=== PATIENT | female | born 1980 | race American Indian/Alaskan Native ===

== ENCOUNTER 2017-05-20 13:13 | Emergency (ER) | payer BC ==
[2017-05-20 13:53] VITALS: BMI 42.4
[2017-05-20] MEDS ORDERED: Lactated Ringer's 1,000 ML IV SCH (14:15)
--- NOTE | 2017-05-20 14:17 | OBHP ---
Datetime: 05/20/2017 14:06 IP Adm Impression: , intrauterine IP Chief Complaint Other: Lightheadness, Pelvic Pressure IP Admit Plan: Observation/Evaluation Admit Comment, IP Provider: Subjective: CC: Lightheadness and pelvic pressure HPI: Pt is 36 year old at 34 weeks EGA who presents to labor and delivery for evaluation and tr eatment of lightheadness which began the morning of 05/20 without any specific provoking event. Pt sta gilberto the lightheadness is intermittent in nature and resolves without any acute intervention. Lighthea dness is not associated with any symptoms, denies exacerbating or remitting factors. Pelvic pressure began approximately 3 days ago with no specific provoking event that is interrmitent in nature, resol ves without any acute intervention. Pt denies contractions, vaginal bleeding, rupture of membranes. Admits movements. ROS - Admits to SOB on exertion. Denies fevers, chills, chest pain, abdominal pain, nausea, vomiti ng, constipation, diarrhea, urinary urgency, pain with urination. 12 point ROS negative except as indicated in HPI. Ob Hx: , FDLMP September 26, EGA 34 weeks, JONATHAN - end of June. 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 Past Medical History: Chronic HTN. Past Surgical History: none Allergies: NKDA Social: Denies alcohol, tobacco and illicit drugs use. 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 Medications: Labetalol 100mg BID since , , Vitamin D3, Folate. Primary Bar Pointer: Dr. Pruitt Objective: Consitutional: NAD Head: ATNC Eyes: EOMI bilaterally ENT: Moist mucous membranes Heart: +S1, +S2, RRR, no rubs, no gallops, no murmurs Lungs: CTA bilateral, no wheezing, no rhonchi, no rales Abdomen: Gravid Neuro: Awake, alert, oriented x 3, pt responds to verbal stimuli, answers questions appropiately, follows commands, moves extremities past midline. Extremities: Trace edema bilateral LE. Skin: clean, warm, dry and intact Psych: normal mood and normal affect Assessment and Plan : Pt is 36 year old at 34 weeks EGA who presents to labor and delivery for evaluation and tr eatment of lightheadness and pelvic pressure. Lightheadness without syncope - Likely secondary to dehydration; rule out Pre-Eclampsia - BP reviewed, trended, appreciated goal SBP 90- 150mmHg, goal DBP < 80-100mmHg, - Continue Labetolol 100mg PO, continue to monitor closely. - Labs - CBC, CMP, UA - IVF LR @ 125ml/hr Pt seen with, case reviewed with, planned approved by attending physician, Dr. Pruitt. agrees with above Pelvic Type - PN: Not Done Extremities - PN: Normal Abdomen - PN: Normal Back - PN: Normal Breast - PN: Not Done Lungs - PN: Normal Heart - PN: Normal Thyroid - PN: Normal Neurologic - PN: Not Done HEENT - PN: Normal General - PN: Normal IP Hx Assessment: The History has been Reviewed and is Current EGA AdmitDate IP: 34.0 Vital Signs Provider: Reviewed IP Chief Complaint: Other Genitourinary Exam: Not Done DTRs - PN: Not Done
[2017-05-20 14:43] LABS: BASO # 0.1 K/uL (0.0-0.2); BASO % 0.9 % (0.0-2.0); EOS # 0.1 K/uL (0.0-0.7); EOS % 0.5 % (0.0-4.0); HEMOGLOBIN 10.9 g/dL (11.0-16.0); LYMPH # 2.9 K/uL (1.0-4.3); LYMPH % 21.2 % (20.0-40.0); MEAN CELL VOLUME 86.6 fL (81.0-99.0); MEAN CORPUSCULAR HGB CONC 33.5 g/dL (33.0-37.0); MEAN PLATELET VOLUME 9.4 fL (7.2-11.7); MONO # 1.1 K/uL (0.0-0.8); MONO % 8.3 % (0.0-10.0); NEUT # 9.3 K/uL (1.8-7.0); NEUT % 69.1 % (50.0-75.0); NRBC % 0.1 % (0.0-2.0); RBC 3.75 Mil/uL (3.80-5.20); RED CELL DISTRIBUTION WIDTH 13.3 % (11.5-14.5); WHITE BLOOD COUNT 13.5 K/uL (4.8-10.8)
[2017-05-20 14:51] LABS: PROTHROMBIN TIME 10.6 SECONDS (9.7-12.2)
[2017-05-20 14:57] LABS: URINE BACTERIA RARE (<OCC); URINE BILIRUBIN NEGATIVE (NEGATIVE); URINE BLOOD 1+ (NEGATIVE); URINE CLARITY Clear (Clear); URINE COLOR Colorless (YELLOW); URINE GLUCOSE (UA) NORMAL (Normal); URINE LEUKOCYTE ESTERASE 1+ Leu/uL (Negative); URINE PROTEIN NEGATIVE (NEGATIVE); URINE UROBILINOGEN NORMAL mg/dL (0.2-1.0)
[2017-05-20 15:04] LABS: ALBUMIN 3.7 g/dL (3.5-5.0); ALT/SGPT 29 U/L (9-52); AST/SGOT 24 U/L (14-36); BLOOD UREA NITROGEN 8 mg/dL (7-17); GFR AFRICAN-AMERICAN > 60; GFR NON-AFRICAN AMERICAN > 60; URIC ACID 4.3 mg/dL (2.2-7.5)
[2017-05-20 15:06] LABS: SQUAMOUS EPITHIAL 3 /hpf (0-5)
--- NOTE | 2017-05-20 16:48 | US ---
PROCEDURE: Biophysical profile HISTORY: Lightheadedness, COMPARISON: None TECHNIQUE: Standard protocol for this study/examination. FINDINGS: FINDINGS: Biophysical profile score 8/8 Based on the followin. breathing movements: 2/2 2. Gross body movement: 2/2 3. tone: 2/2 4. Qualitative amniotic fluid index: 2/2 Breech presentation. Fundal Placenta. No evidence of abruption or previa Gestational age derived from LMP 34 weeks Gestational age derived from the following biometric parameters 34 weeks 2 days . Biparietal diameter 8.63 cm Head [id number] cm Abdominal circumference 28.58 cm Femur length 6.71 cm Estimated weight 2231 g Calculated cardiac rate 119.5 beats per min. Closed cervix measuring 3.97 cm IMPRESSION: Biophysical profile score 8/8. 34 weeks 2 days live intrauterine gestation. Gestational concordance documented. JONATHAN based on LMP: 06/04/2017 JONATHAN based on biometry: 06/29/2017
--- NOTE | 2017-05-20 17:06 | OBDCSUM ---
Datetime: 05/20/2017 17:04 Discharged to, Provider: Home Follow up at, Provider: 1week Follow up in weeks, Provider: pmd Discharge Comment, Provider: dc home preecmptic s/s giv cont ;abetolo f/u pmd in 1week Discharge Diagnosis Prov Other: 33we ligt hadness ch htn
--- NOTE | 2017-05-20 17:07 | OBHP ---
Datetime: 05/20/2017 17:02 Admit Comment, IP Provider: pt was seen at bed side, feels ok, no ctxs, vb, lof+fm nst 130 mod vaughn bp n bpp 8/8 plan dc home preecmptic s/s giv cont ;abetolo f/u pmd in 1week FHR - Baseline A Provider: 130 Contraction Comments Provider: none Vital Signs Provider: Reviewed; Within Normal Limits NICHD Variability Prov Fetus A: Moderate 6-25bpm NICHD Accel Fetus A IP Provider: 15X15 FHR Category Provider Fetus A: Category I Dilatation, Provider: 0 Effacement, Provider: 0 Station, Provider: 0 Datetime: 05/20/2017 14:06 EGA AdmitDate IP: 34.0
[2017-05-20 21:39] VITALS: BP 128/84; PULSE 92; O2SAT 99
== END 2017-05-20 17:30 | disposition home or self-care (01) ==
LOC: C.EROB 13:13
DX: O26.893 Other specified pregnancy related conditions, third trimester (principal); R42 Dizziness and giddiness; R10.2 Pelvic and perineal pain; Z3A.34 34 weeks gestation of pregnancy
CPT/HCPCS: 76815; 76818; 80053; 81001; 83615; 84550; 85025; 85384; 85610; 85730; 99283; J7120

== ENCOUNTER 2017-06-19 06:35 | Inpatient (IN) | payer BC ==
--- NOTE | 2017-06-19 07:10 | OBADHP ---
Datetime: 06/19/2017 07:05 Admit Comment, IP Provider: at 39.6weeks came withn c/o dec fm and ctxs on /off, no vb, no lof. obhx 1 x pmh ch htn med labetolol all nkda psh de soch de ve /-3 a/p at 39+weks chr htn/dec fm admit to l_d npo/ivf labs cytotec pen g cont celine and efm anticipate Pelvic Type - PN: Adequate Extremities - PN: Normal Abdomen - PN: Normal Back - PN: Normal Breast - PN: Normal Lungs - PN: Normal Heart - PN: Normal Thyroid - PN: Normal Neurologic - PN: Normal HEENT - PN: Normal General - PN: Normal FHR - Baseline A Provider: 130 Comments, ACOG Physical Exam: gravid,non tender IP Hx Assessment: The History has been Reviewed and is Current Vital Signs Provider: Reviewed; Within Normal Limits IP Chief Complaint: Uterine contractions; Decreased movement NICHD Variability Prov Fetus A: Moderate 6-25bpm NICHD Accel Fetus A IP Provider: 15X15 Dilatation, Provider: 1 Effacement, Provider: 60 Station, Provider: -2 Genitourinary Exam: Normal DTRs - PN: Normal EGA AdmitDate IP: 38.2 IP Adm Impression: Term, intrauterine ; No Active Labor IP Admit Plan: Admit to unit; Initiate labor induction protocol Datetime: 05/20/2017 17:02 Contraction Comments Provider: none FHR Category Provider Fetus A: Category I Datetime: 05/20/2017 14:06 IP Chief Complaint Other: Lightheadness, Pelvic Pressure
[2017-06-19 07:12] VITALS: BMI 41.6
[2017-06-19] MEDS ORDERED: Lactated Ringer's 1,000 ML IV SCH (07:15)
[2017-06-19] MEDS ORDERED: Penicillin G 5 Million Unit Vial IVPB ONE ×2 (07:45→07:50)
[2017-06-19 07:49] LABS: BASO % 0.3 % (0.0-2.0); EOS # 0.1 K/uL (0.0-0.7); EOS % 0.8 % (0.0-4.0); HEMOGLOBIN 10.2 g/dL (11.0-16.0); LYMPH # 1.7 K/uL (1.0-4.3); LYMPH % 16.1 % (20.0-40.0); MEAN CELL VOLUME 85.3 fL (81.0-99.0); MEAN CORPUSCULAR HEMOGLOBIN 29.2 pg (27.0-31.0); MEAN CORPUSCULAR HGB CONC 34.2 g/dL (33.0-37.0); MEAN PLATELET VOLUME 9.4 fL (7.2-11.7); MONO # 0.6 K/uL (0.0-0.8); MONO % 5.5 % (0.0-10.0); NEUT # 8.3 K/uL (1.8-7.0); NEUT % 77.3 % (50.0-75.0); RBC 3.49 Mil/uL (3.80-5.20); RED CELL DISTRIBUTION WIDTH 13.9 % (11.5-14.5); WHITE BLOOD COUNT 10.7 K/uL (4.8-10.8)
[2017-06-19 07:56] LABS: PROTHROMBIN TIME 10.8 SECONDS (9.7-12.2)
[2017-06-19 08:00] LABS: SQUAMOUS EPITHIAL 1 /hpf (0-5); URINE BILIRUBIN NEGATIVE (NEGATIVE); URINE BLOOD NEGATIVE (NEGATIVE); URINE CLARITY Clear (Clear); URINE COLOR Yellow (YELLOW); URINE GLUCOSE (UA) NORMAL (Normal); URINE LEUKOCYTE ESTERASE NEG Leu/uL (Negative); URINE PROTEIN NEGATIVE (NEGATIVE); URINE UROBILINOGEN NORMAL mg/dL (0.2-1.0)
[2017-06-19 08:06] LABS: ALBUMIN 3.3 g/dL (3.5-5.0); ALT/SGPT 14 U/L (9-52); AST/SGOT 29 U/L (14-36); BLOOD UREA NITROGEN 7 mg/dL (7-17); CALCIUM 8.8 mg/dl (8.6-10.4); GFR AFRICAN-AMERICAN > 60; GFR NON-AFRICAN AMERICAN > 60
[2017-06-19] MEDS ORDERED: Nalbuphine 20 mg/ml Inj (1 ml) IVP PRN (10:30)
--- NOTE | 2017-06-19 11:25 | OBPN ---
Datetime: 06/19/2017 11:23 IP Progress Impression: Normal progression of labor IP Procedures: Sterile Vag Exam Contraction Comments Provider: q1-4 FHR - Baseline A Provider: 130 IP Progress Note Comment: pt was examine at bd side ve /-2 cyototec 25 mcg placed anticipate NICHD Accel Fetus A IP Provider: 15X15 FHR Category Provider Fetus A: Category I NICHD Variability Prov Fetus A: Moderate 6-25bpm Dilatation, Provider: 3 Effacement, Provider: 60 Station, Provider: -2 Datetime: 06/19/2017 07:05 Vital Signs Provider: Reviewed; Within Normal Limits
[2017-06-19] MEDS ORDERED: Bupivacaine HCl 0.25% PF (30 ml) Inj ONE ×2 (11:35→17:58)
[2017-06-19] MEDS ORDERED: Bupivacaine HCl/FentaNYL Cit 100 ML EPI ONE ×2 (11:35→18:33)
--- NOTE | 2017-06-19 13:10 | OBPN ---
Datetime: 06/19/2017 13:06 IP Procedures: Artificial ROM Contraction Comments Provider: q1-4 FHR - Baseline A Provider: 130 IP Progress Note Comment: pt was examined at bd side ve /-2 arom clear will start pitocin cont gbs proph anticipste Vital Signs Provider: Reviewed; Within Normal Limits NICHD Accel Fetus A IP Provider: 15X15 FHR Category Provider Fetus A: Category I NICHD Variability Prov Fetus A: Moderate 6-25bpm Dilatation, Provider: 3 Effacement, Provider: 70 Station, Provider: -2
[2017-06-19] MEDS ORDERED: Oxytocin 30 UNIT 30 UNITS/500 ML BAG IV PRN (13:12)
[2017-06-19] MEDS ORDERED: Oxytocin 30 UNIT 30 UNITS/500 ML BAG IV ONE (14:04)
--- NOTE | 2017-06-19 19:07 | OBPN ---
Datetime: 06/19/2017 19:04 IP Progress Impression: Normal progression of labor IP Procedures: Sterile Speculum Exam IP Progress Plan: Continue present management Contraction Comments Provider: q1-3 FHR - Baseline A Provider: 130 IP Progress Note Comment: pt was examined at bed side ve 7/100/-2 comnt pitocin anticipate Vital Signs Provider: Reviewed; Within Normal Limits NICHD Accel Fetus A IP Provider: 15X15 FHR Category Provider Fetus A: Category I NICHD Variability Prov Fetus A: Moderate 6-25bpm Dilatation, Provider: 7 Effacement, Provider: 100 Station, Provider: -2
--- NOTE | 2017-06-19 20:00 | OBDS ---
DELIVERY PERSONNEL Delivery Doctor: Lg Pruitt MD Scrub Nurse: Leda Cassidy OBT Customer Operations Intern: Marsha Zamora RN Anesthesiologist: MATERNAL INFORMATION Delivery Anesthesia: Epidural Medications in Delivery: Pitocin Estimated Blood Loss (ml): 300 Placenta Cultured: Yes Provider Comments: PRIVATE DR DONA ward deliverd in [place].end clean, cord arrounfd neck reduced. 7/9.peads called.cord gas sent no com placente to pathology no com LABOR SUMMARY EDC: 07/01/2017 00:00 No. Babies in Womb: 1 Attempted: No LABOR INFORMATION Cervical Ripening Agents: Cytotec @ cytotec 25mcg intravaginally administered by Group B Beta Strep: Positive as per . Lab result requested to MD [facility] Membranes Rupture Method: Artificial Rupture of Membranes: 06/19/2017 13:00 Amniotic Fluid Color: Clear Amniotic Fluid Amount: Moderate Amniotic Fluid Odor: Normal PRESENTATION/POSITION BABY A Presentation: Cephalic Cephalic Presentation: Vertex Vertex Position: Left Occipital Anterior Breech Presentation: N/A PLACENTA INFORMATION BABY A Placenta Method of Delivery: Spontaneous Placenta Status: Delivered SCORES BABY A Heart Rate 1 min: >100 bpm Resp Effort 1 min: Slow, Irregular Reflex Irritability 1 min: Cough or Sneeze or Pulls Away Muscle Tone 1 min: Some Flexion of Extremities Color 1 min: Body [place], Extremities Blue SCORE 1 MIN: 7 Heart Rate 5 min: >100 bpm Resp Effort 5 min: Good Cry Reflex Irritability 5 min: Cough or Sneeze or Pulls Away Muscle Tone 5 min: Active Motion Color 5 min: Body [place], Extremities Blue SCORE 5 MIN: 9 INFORMATION BABY A Gestational Age at Delivery: 38.2 IDENTIFICATION/MEDS BABY A ID Band Number: [id number] Sensor Number: [id number] WEIGHT/LENGTH BABY A Infant Birthweight (gms): 3510 Infant Weight (lb): 7 Weight (oz): 12 Infant Length Inches: 19.50 Infant Length cms: 49.5 CORD INFORMATION BABY A No. Cord Vessels: 3 Nuchal Cord : Around Neck x1, Loose Cord Blood Taken: Yes Suction: Mouth; Nose; Pharynx
[2017-06-19] MEDS ORDERED: Benzocaine/Menthol 20%-0.5% Topical Spray (60 ml) TOP PRN (20:01)
[2017-06-19] MEDS ORDERED: Oxycodone/Acetaminophen 5/325 mg Tab PO PRN ×2 (20:01)
[2017-06-19] MEDS ORDERED: Oxytocin 30 UNIT 30 UNITS/500 ML BAG IV SCH (20:15)
--- NOTE | 2017-06-20 06:05 | OBPPN ---
Datetime: 06/20/2017 06:04 PP Pain Prov: Within normal limits PP Nausea Prov: Denies PP Flatus Prov: Yes PP Comments Phys Exam Prov: fudus below umblicus ext no edek,a,no calf ten PP Impression Prov: Normal progression PP Plan Prov: Continue present management PP Progress Note Prov: pt was seen at bd side, pain under cntrol,no n/v, toletraing deit, voiding, m in ochia, flatus+ ppd#1 s/p cont pp care cont pain manahement encourage ambulation Vital Signs Provider PP: Reviewed; Within Normal Limits
[2017-06-20 07:24] LABS: BASO # 0.1 K/uL (0.0-0.2); BASO % 0.3 % (0.0-2.0); EOS # 0.1 K/uL (0.0-0.7); EOS % 0.4 % (0.0-4.0); HEMOGLOBIN 11.1 g/dL (11.0-16.0); LYMPH # 2.3 K/uL (1.0-4.3); LYMPH % 11.7 % (20.0-40.0); MEAN CELL VOLUME 84.9 fL (81.0-99.0); MEAN CORPUSCULAR HEMOGLOBIN 28.5 pg (27.0-31.0); MEAN CORPUSCULAR HGB CONC 33.6 g/dL (33.0-37.0); MEAN PLATELET VOLUME 9.3 fL (7.2-11.7); MONO # 1.4 K/uL (0.0-0.8); MONO % 7.1 % (0.0-10.0); NEUT # 15.7 K/uL (1.8-7.0); NEUT % 80.5 % (50.0-75.0); RBC 3.88 Mil/uL (3.80-5.20); RED CELL DISTRIBUTION WIDTH 13.7 % (11.5-14.5)
[2017-06-20 07:26] LABS: WHITE BLOOD COUNT 19.5 K/uL (4.8-10.8)
[2017-06-20 16:04] VITALS: RESP 20
[2017-06-20] MEDS ORDERED: Tdap Vaccine 0.5 ml Vial (10-64 yrs) IM ONE (20:01)
[2017-06-21] MEDS ORDERED: Tdap Vaccine 0.5 ml Vial (10-64 yrs) IM ONE (10:30)
[2017-06-21 16:04] VITALS: PULSE 76
[2017-06-21 23:20] VITALS: BP 112/77; TEMP 97; O2SAT 98
== END 2017-06-21 19:00 | disposition home or self-care (01) | DRG 774 ==
LOC: C.EROB 06:35 → C.4D 07:12 → C.4M 22:05
PROVIDERS: ADMIT Obstetrics & Gynecology; ATTEND Obstetrics & Gynecology
PROC: 10E0XZZ Delivery of Products of Conception, External Approach (ICD-10-PCS; principal; 2017-06-19)
DX: O10.92 Unspecified pre-existing hypertension complicating childbirth (principal); Z3A.38 38 weeks gestation of pregnancy; O69.81X0 Labor and delivery complicated by cord around neck, without compression, not applicable or unspecified; O99.824 Streptococcus B carrier state complicating childbirth; Z37.0 Single live birth